=== PATIENT | male | born 2000 | race African-American/Black ===

== ENCOUNTER 2023-09-24 13:17 | Emergency (ER) | payer SELFPAY ==
[~2023-09-24] VITALS: Ht 195.6 cm; Wt 74.8 kg
[2023-09-24 13:43] VITALS: BP 118/59; PULSE 74; RESP 16; TEMP 98.2; O2SAT 98
[2023-09-24] MEDS ORDERED: SULF1TAB48 MT ×2 (13:51)
[2023-09-24] MEDS ORDERED: AMOX125S12 MT (13:51)
[2023-09-24] MEDS ORDERED: SULF473O12 MT (13:54)
== END 2023-09-24 15:37 | disposition home or self-care (01) ==
LOC: ER 13:17
DX: L03.213 Periorbital cellulitis (principal)
CPT/HCPCS: 99283

== ENCOUNTER 2024-01-26 16:58 | Emergency (ER) | payer SELFPAY ==
[~2024-01-26] VITALS: Ht 193 cm; Wt 75.0 kg
[~2024-01-26 16:58] MED LIST: AMOX125S12 MT; SULF473O12 MT
[2024-01-26 17:02] VITALS: BP 121/61; PULSE 77; RESP 18; TEMP 98; O2SAT 98
[2024-01-26] MEDS ORDERED: IBUP-2029 MT (18:54)
[2024-01-26] MEDS ORDERED: BO1 TP (18:54)
== END 2024-01-26 19:05 | disposition home or self-care (01) ==
LOC: ER 16:59
DX: S81.812A Laceration without foreign body, left lower leg, initial encounter (principal); G89.11 Acute pain due to trauma; W18.39XA Other fall on same level, initial encounter; Y93.89 Activity, other specified; Y92.89 Other specified places as the place of occurrence of the external cause; Y99.8 Other external cause status
CPT/HCPCS: 99281; 99282

== ENCOUNTER 2024-03-07 17:28 | Emergency (ER) | payer SELFPAY ==
[~2024-03-07] VITALS: Ht 193 cm; Wt 67.0 kg
[~2024-03-07 17:28] MED LIST changes: +BO1 TP; +IBUP-2029 MT
[2024-03-07] MEDS ORDERED: IBUP-2028 MT (21:02)
[2024-03-07 21:11] VITALS: BP 105/55; PULSE 67; RESP 16; TEMP 97.9
[2024-03-07] MEDS: KETOROLAC 60MG/2ML VIAL IM ONE (21:11)
== END 2024-03-07 21:17 | disposition home or self-care (01) ==
LOC: ER 17:28
DX: M79.672 Pain in left foot (principal); F19.90 Other psychoactive substance use, unspecified, uncomplicated
CPT/HCPCS: 99283; 73630; 96372; J1885